=== PATIENT | female | born 1980 | race Caucasian/White ===

== ENCOUNTER 2017-09-14 14:47 | Emergency (ER) | payer BC ==
[~2017-09-14] VITALS: Ht 167.6 cm; Wt 88.5 kg
[2017-09-14 14:54] VITALS: BP 104/69
== END 2017-09-14 16:21 | disposition home or self-care (01) ==
LOC: ED 16:10
DX: G89.11 Acute pain due to trauma (principal); M79.675 Pain in left toe(s); E03.9 Hypothyroidism, unspecified; X58.XXXA Exposure to other specified factors, initial encounter; Y93.89 Activity, other specified; Y92.009 Unspecified place in unspecified non-institutional (private) residence as the place of occurrence of the external cause; Y99.9 Unspecified external cause status
CPT/HCPCS: 99284